=== PATIENT | female | born 1960 | race Caucasian/White ===

== ENCOUNTER → 2017-02-03 | Outpatient (REF) ==
[~2017-02-03] MED LIST: ASMANEX TW110 MCG/Ac IH; BYSTOLIC5 MG PO; DIOVAN HCT 25 M1 TA1 PO; ESTRACE 1MG1 MG/TAB PO; MICRO-K 1010 MEQ PO; NAPRELAN500 MG PO; TOVIAZ4 MG PO; WELLBUTRIN XL150 MG PO
== END ==
LOC: ZLAB.WCH 10:08
DX: Z01.89 Encounter for other specified special examinations (principal)